=== PATIENT | female | born 1965 | race Hispanic/Latino ===

== ENCOUNTER 2016-07-18 08:00 | Emergency (ER) | payer MEDICARE, OTHER ==
[2016-07-18 08:01] VITALS: BMI 35.6
[2016-07-18 08:11] VITALS: TEMP 98.7; O2SAT 100
--- NOTE | 2016-07-18 08:23 | ED PDOC ---
Arrival/HPI - History of Present Illness Time/Duration: > week Symptom Onset: Gradual Symptom Course: Unchanged Quality: Other (pinching) Severity Level: 4 <Callie Vazquez - Last Filed: 07/18/16 09:47> <Marco Plaza - Last Filed: 07/18/16 12:37> - General Chief Complaint: Cough, Cold, Congestion Time Seen by Provider: 07/18/16 08:12 - History of Present Illness Narrative History of Present Illness (Text): 07/18/16 08:23 51 yo F w h/o COPD, active tobacco abuse and previous PNA presents with 3 week h /o sinus pain and green productive cough not improved with 7-days of augmentin ( finished 2 days ago) and 2-day h/o upper back pain. Back pain is described as intermittent "pinching lung pain" with no alleviating or exacerbating factors. Patient denies pleuritic pain, CP, fevers, abd pain, n/v/d, rashes. She admits to mild SOB, lethargy, myalgias, chills, and sweating. Patient states she still smokes 1ppd and has been doing so for >30years. (Callie Vazquez) Past Medical History - Provider Review Nursing Documentation Reviewed: Yes - Travel History Have you recently traveled outside [place] w/in the past 3 mons?: No - Infectious Disease Hx of Infectious Diseases: None - Reproductive Menopause: Yes - Pulmonary Hx Asthma: Yes Hx Chronic Obstructive Pulmonary Disease (COPD): Yes - Psychiatric Hx Substance Use: No - Surgical History Other/Comment: brain surgery for blood clot - Anesthesia Hx Anesthesia Reactions: No Hx Malignant Hyperthermia: No <Callie Vazquez - Last Filed: 07/18/16 09:47> Family/Social History - Physician Review Nursing Documentation Reviewed: Yes Family/Social History: No Known Family HX Smoking Status: Heavy Smoker > 10 Cigarettes Daily (x>30 years) Hx Alcohol Use: No Hx Substance Use: No <Callie Vazquez - Last Filed: 07/18/16 09:47> Allergies/Home Meds <Callie Vazquez - Last Filed: 07/18/16 09:47> <Marco Plaza - Last Filed: 07/18/16 12:37> Allergies/Adverse Reactions: Allergies mold Allergy (Verified 07/18/16 08:12) COUGH dust mites Allergy (Uncoded 07/18/16 08:12) COUGH Home Medications: Home Meds Medication Instructions Recorded Confirmed Clonazepam 0.5 mg PO TID 07/18/16 07/18/16 Fluticasone/Salmeterol 250/50 1 puff INH QID 07/18/16 07/18/16 [Advair Diskus 250/50] Montelukast [Singulair] 10 mg PO DAILY 07/18/16 07/18/16 Tiotropium [place] Inhaler 1 puff INH DAILY 07/18/16 07/18/16 [Spiriva Inhalation Handihaler Device] Review of Systems - Physician Review All systems were reviewed & negative as marked: Yes - Review of Systems Constitutional: Fatigue. absent: Fevers Eyes: absent: Vision Changes, Photophobia ENT: Rhinorrhea, Sinus Congestion. absent: Epistaxis Respiratory: SOB, Cough, Sputum (green x 3 weeks) Cardiovascular: absent: Chest Pain, Palpitations, Edema, Calf Pain Gastrointestinal: absent: Abdominal Pain, Constipation, Diarrhea, Nausea, Vomiting Genitourinary Female: absent: Dysuria, Hematuria Musculoskeletal: Back Pain (upper), Myalgias. absent: Neck Pain Skin: absent: Rash, Skin Lesions Neurological: absent: Headache, Dizziness Endocrine: Diaphoresis Hemo/Lymphatic: Normal Psychiatric: Anxiety. absent: Depression, Suicidal Ideation <Callie Vazquez - Last Filed: 07/18/16 09:47> Physical Exam Vital Signs Reviewed: Yes Temperature: Afebrile Blood Pressure: Normal Pulse: Regular Respiratory Rate: Normal Appearance: Positive for: Well-Appearing, Non-Toxic, Comfortable Pain Distress: None Mental Status: Positive for: Alert and Oriented X 3 - Systems Exam Head: Present: Atraumatic, Normocephalic Pupils: Present: PERRL. No: Sluggish Extroacular Muscles: Present: EOMI Conjunctiva: Present: Normal. No: Injected, Icteric Ears: Present: Normal Mouth: Present: Moist Mucous Membranes Pharnyx: Present: ERYTHEMA. No: EXUDATE Nose (Internal): Present: Normal Inspection, Boggy. No: Purulent Mucous Neck: Present: Normal Range of Motion. No: Meningeal Signs, JVD Respiratory/Chest: Present: Good Air Exchange, Wheezes (diffuse end-exp). No: Clear to Auscultation, Respiratory Distress, Accessory Muscle Use, Rales, Rhonchi, Tachypneic Cardiovascular: Present: Regular Rate and Rhythm, Normal S1, S2. No: Murmurs Abdomen: Present: Normal Bowel Sounds. No: Tenderness, Distention, Peritoneal Signs, Rebound, Guarding Back: Present: Normal Inspection, Other (mild muscle spasm upper thoracics). No : CVA Tenderness, Midline Tenderness, Paraspinal Tenderness Upper Extremity: Present: Normal Inspection. No: Cyanosis, Edema Lower Extremity: Present: Normal Inspection, NORMAL PULSES. No: Edema, CALF TENDERNESS Neurological: Present: GCS=15, CN II-XII Intact, Speech Normal Skin: Present: Warm, Dry, Normal Color Psychiatric: Present: Alert, Oriented x 3, Normal Insight, Normal Concentration <Callie Vazquez - Last Filed: 07/18/16 09:47> Vital Signs Temp Pulse Resp BP Pulse Ox 07/18/16 10:00 68 16 141/87 100 07/18/16 08:00 98.7 F 66 18 143/90 100 Medical Decision Making Re-evaluation Time: 09:23 Reassessment Condition: Re-examined, Improved - Lab Interpretations I have reviewed the lab results: Yes Interpretation: All labs normal - RAD Interpretation Communications Controller: ED Physician <Callie Vazquez - Last Filed: 07/18/16 09:47> <Marco Plaza - Last Filed: 07/18/16 12:37> ED Course and Treatment: 07/18/16 08:39 51 yo F w h/o COPD and active tobacco abuse presents with 3 week h/o productive cough and sinus pain with active end-expiratory wheezing on exam. CXR, labs, Duonebs, solumedrol. Extensively counseled patient regarding need for immediate smoking cessation for cardiovascular and overall health. 07/18/16 09:10 Patient re-examined. Still with some upper back pain. 15mg Toradol IVP x1. Receiving Duonebs. CXR shows possible RLL infiltrate. PO levaquin 500mg x1. 07/18/16 09:29 Patient CTA BL, wheezing significantly improved, no appreciable wheezing at this time, good air movement. States she feels better, denies SOB, SpO2 on room air 98-100%. Labs and x-ray findings discussed with patient and all questions answered. (Callie Vazquez) A 51 year old female with back pain and productive cough. In agreement with resident note, which includes further HPI details. Patient was seen and evaluated with resident, came up with plan and treatment together. On reevaluation, prior to discharge, lungs clear. no w/r/r. Patient asked for a remote sensing engineer and I referred her to Dr. Stack. (Marco Plaza) - Lab Interpretations Lab Results: 07/18/16 08:30 07/18/16 08:30 Lab Results 07/18/16 08:50: Urine HCG, Qual Negative 07/18/16 08:30: WBC 8.1, RBC 4.97, Hgb 14.3, Hct 42.4, MCV 85.3, MCH 28.8, MCHC 33.7, RDW 14.2, Plt Count 213, MPV 11.3 H, Gran % 60.7, Lymph % (Auto) 31.3, Morris % (Auto) 6.4 H, Eos % (Auto) 1.2 L, Baso % (Auto) 0.4, Gran # 4.94, Lymph # 2.6, Morris # 0.5, Eos # 0.1, Baso # 0.03, Sodium 139, Potassium 4.4, Chloride 104, Carbon Dioxide 27, Anion Gap 12, BUN 15, Creatinine 0.6, Est GFR ( Amer) > 60, Est GFR (Non-Af Amer) > 60, Random Glucose 98, Calcium 9.6, Total Bilirubin 0.7, AST 21, ALT 33, Alkaline Phosphatase 73, Total Protein 7.2, Albumin 4.0, Globulin 3.1, Albumin/Globulin Ratio 1.3 - RAD Interpretation Narrative RAD Interpretations (Text): 07/18/16 09:25 CXR - possible RLL infiltrate (Callie Vazquez) Radiology Orders: 07/18/16 08:29 CXR [CHEST TWO VIEWS (PA/LAT)] [RAD] Stat - Medication Orders Current Medication Orders: Discontinued Medications Albuterol/Ipratropium (Duoneb 3 Mg/0.5 Mg (3 Ml) Ud) 3 ml IH STAT STA Stop: 07/18/16 08:33 Last Admin: 07/18/16 08:58 Dose: 3 ML Ketorolac Tromethamine (Toradol) 15 mg IVP STAT STA Stop: 07/18/16 09:24 Last Admin: 07/18/16 09:42 Dose: 15 MG IVP Administration Document 07/18/16 09:42 HI (Rec: 07/18/16 09:42 HI [id number]) Charges for Administration # of IVP Administrations 1 Levofloxacin (Levaquin) 500 mg PO STAT STA Stop: 07/18/16 09:30 Last Admin: 07/18/16 09:42 Dose: 500 MG Methylprednisolone (Solu-Medrol) 125 mg IVP STAT STA Stop: 07/18/16 08:33 Last Admin: 07/18/16 08:58 Dose: 125 MG IVP Administration Document 07/18/16 08:58 HI (Rec: 07/18/16 08:58 HI [id number]) Charges for Administration # of IVP Administrations 1 <Callie Vazquez - Last Filed: 07/18/16 09:47> - PA / CERTIFIED CONTROL SYSTEMS TECHNICIAN / Resident Statement MD/ has reviewed & agrees with the documentation as recorded. MD/DO has examined the patient and agrees with the treatment plan. - Scribe Statement The provider has reviewed the documentation as recorded by the Scribe <Marco Plaza - Last Filed: 07/18/16 12:37> - Scribe Statement Belinda Manuel Provider Scribe Attestation: All medical record entries made by the Scribe were at my direction and personally dictated by me. I have reviewed the chart and agree that the record accurately reflects my personal performance of the history, physical exam, medical decision making, and the department course for this patient. I have also personally directed, reviewed, and agree with the discharge instructions and disposition. (Marco Plaza) Disposition/Present on Arrival - Present on Arrival Any Indicators Present on Arrival: No History of DVT/PE: No History of Uncontrolled Diabetes: No Urinary Catheter: No History of Decub. Ulcer: No History Surgical Site Infection Following: None - Disposition Have Diagnosis and Disposition been Completed?: Yes Disposition Time: 09:34 Patient Plan: Discharge <Callie Vazquez - Last Filed: 07/18/16 09:47> - Present on Arrival Any Indicators Present on Arrival: No - Disposition Have Diagnosis and Disposition been Completed?: Yes Disposition Time: 10:00 Patient Plan: Discharge <Marco Plaza - Last Filed: 07/18/16 12:37> - Disposition Diagnosis: Community acquired pneumonia, COPD exacerbation Disposition: HOME/ ROUTINE Condition: STABLE Discharge Instructions (ExitCare): Community Acquired Pneumonia (ED), How to Stop Smoking (ED) Print Language: DIVEHI Additional Instructions: Please followup with your primary care physician within 1-3 days. Please followup with pulmonology (Dr. Stack) within 1-3 days. Please take antibiotics (Levaquin) and steroids (prednisone) as directed. Please continue using your inhalers as prescribed. Prescriptions: Levofloxacin [Levaquin] 500 mg PO DAILY #5 tablet predniSONE [Prednisone] 40 mg PO DAILY #4 tab Referrals: Julia Villarreal MD [Family Provider] - Follow up with primary Checo Stack MD [Staff Provider] - Follow up with primary
[2016-07-18] MEDS ORDERED: Albuterol-Ipratrop 3 mg / 0.5 (3 ml) UD IH STA (08:32)
[2016-07-18 09:05] LABS: ADD MANUAL DIFF? NO
[2016-07-18 09:09] LABS: BASO # 0.03 K/mm3 (0.0-2.0); BASO % 0.4 % (0.0-3.0); EOS # 0.1 (0.0-0.7); EOS % 1.2 % (1.5-5.0); GRAN # 4.94 (1.4-6.5); GRAN % 60.7 % (50.0-68.0); HEMATOCRIT 42.4 % (36.0-48.0); LYMPH # 2.6 (1.2-3.4); LYMPH % 31.3 % (22.0-35.0); MEAN CELL VOLUME 85.3 fL (80.0-105.0); MEAN CORPUSCULAR HEMOGLOBIN 28.8 pg (25.0-35.0); MEAN CORPUSCULAR HGB CONC 33.7 g/dl (31.0-37.0); MEAN PLATELET VOLUME 11.3 fl (7.0-11.0); MONO # 0.5 (0.1-0.6); MONO % 6.4 % (1.0-6.0); PLATELET COUNT 213 10^3/uL (120.0-450.0); RED CELL DISTRIBUTION WIDTH 14.2 % (11.5-14.5); WHITE BLOOD COUNT 8.1 10^3/ul (4.5-11.0)
[2016-07-18 09:18] LABS: ALB/GLOB RATIO 1.3 (1.1-1.8); ALKALINE PHOSPHATASE 73 U/L (38-133); ALT/SGPT 33 U/L (7-56); AST/SGOT 21 U/L (15-39); BILIRUBIN,TOTAL 0.7 mg/dL (0.2-1.3); BLOOD UREA NITROGEN 15 mg/dL (7-21); CALCIUM 9.6 mg/dL (8.4-10.5); CARBON DIOXIDE 27 mmol/L (21-33); CHLORIDE 104 mmol/L (98-107); GFR AFRICAN-AMERICAN > 60; GLUCOSE,RANDOM 98 mg/dL (70-110); POTASSIUM 4.4 mmol/L (3.6-5.0); SODIUM 139 mmol/L (132-148); TOTAL PROTEIN 7.2 g/dL (5.8-8.3)
[2016-07-18] MEDS ORDERED: levoFLOXacin 500 MG TAB PO STA (09:29)
--- NOTE | 2016-07-18 09:44 | RAD ---
HISTORY: productive cough x 3 weeks COMPARISON: No prior. TECHNIQUE: Chest PA and lateral FINDINGS: LUNGS: No active pulmonary disease. PLEURA: No significant pleural effusion identified. No pneumothorax apparent. CARDIOVASCULAR: Normal. OSSEOUS STRUCTURES: Thoracic dextroscoliosis. VISUALIZED UPPER ABDOMEN: Normal. OTHER FINDINGS: None. IMPRESSION: No active disease.
[2016-07-18 10:02] VITALS: BP 141/87; PULSE 68; RESP 16
== END 2016-07-18 10:02 | disposition home or self-care (01) ==
LOC: MERGE 08:00 → ED 08:00
DX: J44.1 Chronic obstructive pulmonary disease with (acute) exacerbation (principal); J18.9 Pneumonia, unspecified organism; F17.210 Nicotine dependence, cigarettes, uncomplicated
CPT/HCPCS: 71020; 80053; 84703; 85025; 94640; 96374; 96375; 99283; J1885; J2930

== ENCOUNTER 2016-08-02 00:01 | Emergency (ER) | payer MEDICARE ==
[2016-08-02 00:07] VITALS: BP 146/99; PULSE 106; RESP 18; TEMP 98.8; BMI 34.9
[2016-08-02] MEDS ORDERED: Albuterol-Ipratrop 3 mg / 0.5 (3 ml) UD IH STA ×3 (00:17→00:46)
--- NOTE | 2016-08-02 00:46 | ED PDOC ---
Arrival/HPI - General Chief Complaint: Shortness Of Breath Time Seen by Provider: 08/02/16 00:16 Historian: Patient - History of Present Illness Narrative History of Present Illness (Text): 08/02/16 00:48 51yo female with PMHx of COPD under [employer] custody BIBA for complaint of SOB all day. States she usually use multiple medications for her COPD, but she could only use her Spriva today. She smokes cigarette. States she was given Levaquin here last week for PNA. she denies fever, chills, chest pain, any other complaint. Past Medical History - Provider Review Nursing Documentation Reviewed: Yes - Infectious Disease Hx of Infectious Diseases: None - Pulmonary Hx Asthma: Yes Hx Chronic Obstructive Pulmonary Disease (COPD): Yes - Psychiatric Hx Substance Use: No - Surgical History Other/Comment: brain surgery for blood clot - Anesthesia Hx Anesthesia Reactions: No Hx Malignant Hyperthermia: No Family/Social History - Physician Review Nursing Documentation Reviewed: Yes Family/Social History: Unknown Family HX Smoking Status: Heavy Smoker > 10 Cigarettes Daily Hx Alcohol Use: No Hx Substance Use: No Allergies/Home Meds Allergies/Adverse Reactions: Allergies mold Allergy (Verified 07/18/16 08:12) COUGH dust mites Allergy (Uncoded 07/18/16 08:12) COUGH Home Medications: Home Meds Medication Instructions Recorded Confirmed Clonazepam 0.5 mg PO TID 07/18/16 07/18/16 Fluticasone/Salmeterol 250/50 1 puff INH QID 07/18/16 07/18/16 [Advair Diskus 250/50] Montelukast [Singulair] 10 mg PO DAILY 07/18/16 07/18/16 Tiotropium [place] Inhaler 1 puff INH DAILY 07/18/16 07/18/16 [Spiriva Inhalation Handihaler Device] Review of Systems - Physician Review All systems were reviewed & negative as marked: Yes - Review of Systems Constitutional: Normal Eyes: Normal ENT: Normal Respiratory: SOB. absent: Cough, Sputum, Wheezing Cardiovascular: Normal Gastrointestinal: Normal Genitourinary Female: Normal Musculoskeletal: Normal Skin: Normal Neurological: Normal Endocrine: Normal Hemo/Lymphatic: Normal Psychiatric: Normal Physical Exam Vital Signs Reviewed: Yes Vital Signs Temp Pulse Resp BP Pulse Ox 08/02/16 01:56 18 98 08/02/16 00:20 18 08/02/16 00:07 98.8 F 106 H 18 146/99 H 94 L Temperature: Afebrile Blood Pressure: Normal Pulse: Regular Respiratory Rate: Normal Appearance: Positive for: Well-Appearing, Non-Toxic, Comfortable Pain Distress: None Mental Status: Positive for: Alert and Oriented X 3 - Systems Exam Head: Present: Atraumatic, Normocephalic Pupils: Present: PERRL Extroacular Muscles: Present: EOMI Conjunctiva: Present: Normal Mouth: Present: Moist Mucous Membranes Neck: Present: Normal Range of Motion Respiratory/Chest: Present: Good Air Exchange, Wheezes (Diffuse expiratory wheeze), Rhonchi. No: Respiratory Distress, Accessory Muscle Use, Decreased Breath Sounds, Rales, Retracting Cardiovascular: Present: Regular Rate and Rhythm, Normal S1, S2. No: Murmurs Abdomen: Present: Normal Bowel Sounds. No: Tenderness, Distention, Peritoneal Signs Back: Present: Normal Inspection Upper Extremity: Present: Normal Inspection. No: Cyanosis, Edema Lower Extremity: Present: Normal Inspection. No: Edema Neurological: Present: GCS=15, CN II-XII Intact, Speech Normal Skin: Present: Warm, Dry, Normal Color. No: Rashes Psychiatric: Present: Alert, Oriented x 3, Normal Insight, Normal Concentration Medical Decision Making ED Course and Treatment: 08/02/16 01:58 On re evaluation pt's lung is CTA b/l. she states she feels much better. she was DC with a rx of albuterol and prednisone. counselled on smoking cessation. Referred to her PMD. TRT ED for any new or worsening symptoms. - Medication Orders Current Medication Orders: Discontinued Medications Albuterol/Ipratropium (Duoneb 3 Mg/0.5 Mg (3 Ml) Ud) 3 ml IH STAT STA Stop: 08/02/16 00:18 Last Admin: 08/02/16 00:33 Dose: 3 ml Albuterol/Ipratropium (Duoneb 3 Mg/0.5 Mg (3 Ml) Ud) 3 ml IH STAT STA Stop: 08/02/16 00:19 Last Admin: 08/02/16 00:47 Dose: 3 ml Albuterol/Ipratropium (Duoneb 3 Mg/0.5 Mg (3 Ml) Ud) 3 ml IH STAT STA Stop: 08/02/16 00:47 Last Admin: 08/02/16 01:38 Dose: 3 ml Methylprednisolone (Solu-Medrol) 125 mg IVP STAT STA Stop: 08/02/16 00:27 Last Admin: 08/02/16 00:47 Dose: 125 mg Disposition/Present on Arrival - Present on Arrival Any Indicators Present on Arrival: No History of DVT/PE: No History of Uncontrolled Diabetes: No Urinary Catheter: No History of Decub. Ulcer: No History Surgical Site Infection Following: None - Disposition Have Diagnosis and Disposition been Completed?: Yes Diagnosis: COPD exacerbation Disposition: RELEASED IN POLICE CUSTODY Disposition Time: :45 Patient Plan: Discharge Condition: STABLE Discharge Instructions (ExitCare): COPD (Chronic Obstructive Pulmonary Disease ) (ED) Additional Instructions: Follow up with your doctor Return to ED for any new or worsening symptoms Patient is medically cleared for incarceration Prescriptions: Albuterol HFA [Ventolin HFA 90 mcg/actuation (8 g)] 2 puff IH [id number] #1 puff Prednisone 50 mg PO DAILY #4 tab Referrals: [facility] [place] [Outside] - Follow up with primary
[2016-08-02 01:57] VITALS: O2SAT 98
--- NOTE | 2016-08-02 13:32 | CARD ---
APPROVED REPORT EKG Measurement Heart [id number] <Conclusion> Normal sinus rhythm Moderate voltage criteria for LVH, may be normal variant Borderline ECG
== END 2016-08-02 01:57 ==
LOC: MERGE 00:01 → ED 00:01
DX: J44.1 Chronic obstructive pulmonary disease with (acute) exacerbation (principal); F17.210 Nicotine dependence, cigarettes, uncomplicated
CPT/HCPCS: 93005; 96374; 99284; J2930

== ENCOUNTER 2016-08-02 07:47 | Emergency (ER) | payer MEDICARE ==
[2016-08-02 07:49] VITALS: BMI 34.9
[2016-08-02 08:14] VITALS: BP 158/84; PULSE 80; RESP 16; TEMP 98.9; O2SAT 97
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
== END 2016-08-02 09:07 | disposition home or self-care (01) ==
LOC: ED 07:47 → MERGE 07:47 → ED 09:07
DX: S10.91XA Abrasion of unspecified part of neck, initial encounter (principal); S30.811A Abrasion of abdominal wall, initial encounter; S70.211A Abrasion, right hip, initial encounter; T14.8 Other injury of unspecified body region; Y04.0XXA Assault by unarmed brawl or fight, initial encounter

== ENCOUNTER 2016-08-25 10:21 | Emergency (ER) | payer MEDICARE ==
[2016-08-25 10:21] VITALS: BMI 34.9
[2016-08-25 10:27] VITALS: RESP 17; TEMP 98.1
[2016-08-25] MEDS ORDERED: Albuterol-Ipratrop 3 mg / 0.5 (3 ml) UD IH STA (10:45)
[2016-08-25] MEDS ORDERED: Promethazine/Cod 6.25mg-10mg/5ml Syr UD PO STA (10:47)
--- NOTE | 2016-08-25 10:48 | ED PDOC ---
Arrival/HPI - General Chief Complaint: Cough, Cold, Congestion Time Seen by Provider: 08/25/16 10:30 Historian: Patient - History of Present Illness Narrative History of Present Illness (Text): 08/25/16 10:45 This 51 yo female presents to this ED c/o cough, and wheezing x 10 days. Patient also noted back pain. Denies hemoptysis, abdominal pain, cp, n/v, / GI incontinence, saddle anesthesias, urinary symptoms, saddle anesthesias, vaginals discharge, or abnormal gait. Time/Duration: > week Context: Home Past Medical History - Provider Review Nursing Documentation Reviewed: Yes - Infectious Disease Hx of Infectious Diseases: None - Pulmonary Hx Asthma: Yes Hx Chronic Obstructive Pulmonary Disease (COPD): Yes - Psychiatric Hx Substance Use: No - Surgical History Other/Comment: brain surgery for blood clot - Anesthesia Hx Anesthesia Reactions: No Hx Malignant Hyperthermia: No Family/Social History - Physician Review Nursing Documentation Reviewed: Yes Family/Social History: No Known Family HX Smoking Status: Heavy Smoker > 10 Cigarettes Daily Hx Alcohol Use: No Hx Substance Use: No Allergies/Home Meds Allergies/Adverse Reactions: Allergies mold Allergy (Verified 08/25/16 10:23) COUGH dust mites Allergy (Uncoded 08/25/16 10:23) COUGH Home Medications: Home Meds Medication Instructions Recorded Confirmed Clonazepam 0.5 mg PO TID 07/18/16 08/25/16 Tiotropium [place] Inhaler 1 puff INH DAILY 07/18/16 08/25/16 [Spiriva Inhalation Handihaler Device] Glycopyrrolate/Formoterol Fum 10.7 gm IH DAILY 08/25/16 08/25/16 [Bevespi Aerosphere Inhaler] Varenicline Tartrate [Chantix] 0.5 mg PO DAILY 08/25/16 08/25/16 Review of Systems - Review of Systems Constitutional: Normal. absent: Fatigue, Weight Change, Fevers, Night Sweats Eyes: Normal ENT: Normal Respiratory: Cough, Sputum, Wheezing. absent: SOB Cardiovascular: Normal. absent: Chest Pain, Palpitations, Edema, Calf Pain, Orthopnea, Syncope Gastrointestinal: Normal. absent: Abdominal Pain, Nausea, Vomiting Genitourinary Female: Normal Musculoskeletal: Normal Skin: Normal Neurological: Normal. absent: Headache, Dizziness, Focal Weakness, Gait Changes , Speech Changes, Facial Droop, Disequilibrium, Seizure Endocrine: Normal Hemo/Lymphatic: Normal Psychiatric: Normal Physical Exam Vital Signs Temp Pulse Resp BP Pulse Ox 08/25/16 12:12 68 17 121/70 99 08/25/16 10:21 98.1 F 64 17 120/66 100 Temperature: Afebrile Blood Pressure: Normal Pulse: Regular Respiratory Rate: Normal Appearance: Positive for: Well-Appearing, Non-Toxic, Comfortable Pain Distress: None Mental Status: Positive for: Alert and Oriented X 3 - Systems Exam Head: Present: Atraumatic, Normocephalic Pupils: Present: PERRL Extroacular Muscles: Present: EOMI Conjunctiva: Present: Normal Mouth: Present: Moist Mucous Membranes Pharnyx: Present: Normal. No: ERYTHEMA, EXUDATE, TONSILS ENLARGED Nose (External): Present: Atraumatic Nose (Internal): Present: Normal Inspection Neck: Present: Normal Range of Motion. No: Meningeal Signs Respiratory/Chest: Present: Good Air Exchange, Wheezes. No: Respiratory Distress, Accessory Muscle Use, Decreased Breath Sounds, Rales, Retracting, Rhonchi, Tachypneic Cardiovascular: Present: Regular Rate and Rhythm, Normal S1, S2. No: Murmurs Abdomen: Present: Normal Bowel Sounds. No: Tenderness, Distention, Peritoneal Signs Back: Present: Normal Inspection. No: CVA Tenderness Upper Extremity: Present: Normal Inspection. No: Cyanosis, Edema Lower Extremity: Present: Normal Inspection. No: Edema Neurological: Present: GCS=15, CN II-XII Intact, Speech Normal Skin: Present: Warm, Dry, Normal Color. No: Rashes Psychiatric: Present: Alert, Oriented x 3, Normal Insight, Normal Concentration Medical Decision Making ED Course and Treatment: 08/25/16 12:46 Re-evaluation. Patient feels better. Discussed results and plan with patient who expresses understanding. All questions answered and there is agreement with the plan to discharge home with instructions. Patient stable for discharge. Return if symptoms persist or worsen. Patient requested Prednisone. She says she has used it in the past for wheezing. She understands risk of AVN, glaucoma, DM, osteoporosis, just to name a few complication. Re-evaluation Time: 12:46 Reassessment Condition: Re-examined, Improved - RAD Interpretation Narrative RAD Interpretations (Text): CXR: NAD Radiology Orders: 08/25/16 12:14 CHEST TWO VIEWS (PA/LAT) [RAD] Stat - Medication Orders Current Medication Orders: Discontinued Medications Albuterol/Ipratropium (Duoneb 3 Mg/0.5 Mg (3 Ml) Ud) 3 ml IH STAT STA Stop: 08/25/16 10:46 Last Admin: 08/25/16 11:00 Dose: 3 ml Prednisone (Prednisone Tab) 60 mg PO STAT ONE Stop: 08/25/16 10:47 Last Admin: 08/25/16 11:00 Dose: 60 mg Promethazine HCl/Codeine (Phenergan/Codeine Oral Syrup) 5 ml PO STAT STA Stop: 08/25/16 10:48 Last Admin: 08/25/16 11:00 Dose: 5 ml Disposition/Present on Arrival - Present on Arrival Any Indicators Present on Arrival: No History of DVT/PE: No History of Uncontrolled Diabetes: No Urinary Catheter: No History of Decub. Ulcer: No History Surgical Site Infection Following: None - Disposition Have Diagnosis and Disposition been Completed?: Yes Diagnosis: Upper respiratory infection, Upper back pain Disposition: HOME/ ROUTINE Disposition Time: 12:47 Patient Plan: Discharge Condition: GOOD Discharge Instructions (ExitCare): Upper Respiratory Infection (ED) Additional Instructions: Call private doctor for follow up visit in 1-2 days. Take medication as instructed with food. Avoid sun exposure while taking antibiotic. Avoid driving or operating machinery while using cough medication. Return to emergency if symptoms worsen. Prescriptions: Doxycycline Monohydrate 100 mg PO BID #14 tablet Prednisone [Deltasone] 60 mg PO DAILY #12 tablet Promethazine/Codeine [Codeine/Promethazine 10 MG/5 Ml-6.25 MG/5 Ml] 5 ml PO Q4 PRN #120 ml PRN Reason: Cough Referrals: [employer] Misael Req, [Non-Staff] - Follow up with primary Julia Villarreal MD [Medical Doctor] - Follow up with primary Forms: WORK NOTE
[2016-08-25 12:26] VITALS: BP 121/70; PULSE 68; O2SAT 99
--- NOTE | 2016-08-25 12:36 | RAD ---
HISTORY: cough COMPARISON: 07/18/2016 TECHNIQUE: Chest PA and lateral FINDINGS: LUNGS: No active pulmonary disease. PLEURA: No significant pleural effusion identified. No pneumothorax apparent. CARDIOVASCULAR: Normal. OSSEOUS STRUCTURES: Severe scoliosis of the upper thoracic spine VISUALIZED UPPER ABDOMEN: Normal. OTHER FINDINGS: None. IMPRESSION: No active disease.
== END 2016-08-25 13:06 | disposition home or self-care (01) ==
LOC: ED 10:21 → MERGE 10:21 → ED 13:06
DX: J06.9 Acute upper respiratory infection, unspecified (principal); M54.9 Dorsalgia, unspecified; F17.210 Nicotine dependence, cigarettes, uncomplicated

== ENCOUNTER 2016-12-09 19:15 | Emergency (ER) | payer MEDICARE ==
[2016-12-09 19:16] VITALS: BMI 34.9
[2016-12-09] MEDS ORDERED: Sodium Chloride 0.9% 1,000 ML IV STA (19:46)
--- NOTE | 2016-12-09 19:49 | ED PDOC ---
Arrival/HPI - General Time Seen by Provider: 12/09/16 19:35 Historian: Patient - History of Present Illness Narrative History of Present Illness (Text): 12/09/16 19:46 Pt. to emergency depaPast medical history COPD,"brain clot",cholecystectomy to emergency depawith c/e episodes of vomiting and diarrhea for past few days.Occassional abdominal cramps.No fever or chills.No chest or back pain.Appetite is fair.No hx of any recent travel. Past Medical History - Provider Review Nursing Documentation Reviewed: Yes - Travel History Have you recently traveled outside [place] w/in the past 3 mons?: No - Infectious Disease Hx of Infectious Diseases: None - Pulmonary Hx Asthma: Yes Hx Chronic Obstructive Pulmonary Disease (COPD): Yes - Psychiatric Hx Substance Use: No - Surgical History Other/Comment: brain surgery for blood clot - Anesthesia Hx Anesthesia Reactions: No Hx Malignant Hyperthermia: No Family/Social History - Physician Review Nursing Documentation Reviewed: Yes Family/Social History: No Known Family HX Smoking Status: Heavy Smoker > 10 Cigarettes Daily Hx Alcohol Use: No Hx Substance Use: No Allergies/Home Meds Allergies/Adverse Reactions: Allergies mold Allergy (Verified 12/09/16 20:09) COUGH dust mites Allergy (Uncoded 12/09/16 20:09) COUGH Home Medications: Home Meds Medication Instructions Recorded Confirmed Clonazepam 0.5 mg PO TID 07/18/16 12/09/16 Tiotropium [place] Inhaler 1 puff INH DAILY 07/18/16 12/09/16 [Spiriva Inhalation Handihaler Device] Review of Systems - Review of Systems Constitutional: Normal Eyes: Normal ENT: Normal Respiratory: Normal Cardiovascular: Normal Gastrointestinal: Diarrhea, Vomiting Genitourinary Female: Normal Musculoskeletal: Normal Skin: Normal Neurological: Normal Endocrine: Normal Hemo/Lymphatic: Normal Psychiatric: Normal Physical Exam Vital Signs Temp Pulse Resp BP Pulse Ox 12/09/16 21:42 98.5 F 82 20 151/89 H 97 Temperature: Afebrile Blood Pressure: Normal Pulse: Regular Respiratory Rate: Normal Appearance: Positive for: Well-Appearing, Non-Toxic, Comfortable Pain Distress: None Mental Status: Positive for: Alert and Oriented X 3 - Systems Exam Head: Present: Atraumatic, Normocephalic Pupils: Present: PERRL Extroacular Muscles: Present: EOMI Conjunctiva: Present: Normal Mouth: Present: Moist Mucous Membranes Pharnyx: Present: Normal Neck: Present: Normal Range of Motion Respiratory/Chest: Present: Clear to Auscultation, Good Air Exchange. No: Respiratory Distress, Accessory Muscle Use Cardiovascular: Present: Regular Rate and Rhythm, Normal S1, S2. No: Murmurs Abdomen: Present: Normal Bowel Sounds. No: Tenderness, Distention, Peritoneal Signs Back: Present: Normal Inspection Upper Extremity: Present: Normal Inspection. No: Cyanosis, Edema Lower Extremity: Present: Normal Inspection. No: Edema Neurological: Present: GCS=15, CN II-XII Intact, Speech Normal, Motor Func Grossly Intact, Normal Sensory Function Skin: Present: Warm, Dry, Normal Color. No: Rashes Psychiatric: Present: Alert, Oriented x 3, Normal Insight, Normal Concentration Medical Decision Making - Lab Interpretations Lab Results: 12/09/16 20:24 12/09/16 20:24 Lab Results 12/09/16 20:24: WBC 7.4, RBC 5.10, Hgb 15.2, Hct 44.1, MCV 86.5, MCH 29.8, MCHC 34.5, RDW 14.1, Plt Count 212, MPV 10.0 12/09/16 20:24: Sodium 139, Potassium 4.2, Chloride 106, Carbon Dioxide 20 L, Anion Gap 17, BUN 22 H, Creatinine 0.7, Est GFR ( Amer) > 60, Est GFR ( Non-Af Amer) > 60, Random Glucose 97, Calcium 8.8, Total Bilirubin 0.3, AST 37 H , ALT 37, Alkaline Phosphatase 78, Total Protein 6.8, Albumin 4.1, Globulin 2.7 , Albumin/Globulin Ratio 1.5, Lipase 106 - Medication Orders Current Medication Orders: Discontinued Medications Famotidine (Pepcid) 20 mg IVP STAT STA Stop: 12/09/16 19:47 Last Admin: 12/09/16 21:35 Dose: 20 mg Sodium Chloride (Sodium Chloride 0.9%) 1,000 mls @ 999 mls/hr IV .Q1H1M STA Stop: 12/09/16 20:46 Last Admin: 12/09/16 21:00 Dose: 999 mls/hr Ketorolac Tromethamine (Toradol) 30 mg IVP ONCE ONE Stop: 12/09/16 19:47 Last Admin: 12/09/16 21:35 Dose: 30 mg Ondansetron HCl (Zofran Inj) 4 mg IVP ONCE ONE Stop: 12/09/16 19:47 Last Admin: 12/09/16 21:36 Dose: 4 mg Disposition/Present on Arrival - Present on Arrival Any Indicators Present on Arrival: No History of DVT/PE: No History of Uncontrolled Diabetes: No Urinary Catheter: No History Surgical Site Infection Following: None - Disposition Have Diagnosis and Disposition been Completed?: Yes Diagnosis: Gastroenteritis Disposition: HOME/ ROUTINE Disposition Time: 22:08 Patient Plan: Discharge Condition: GOOD Discharge Instructions (ExitCare): Gastroenteritis (ED), Acute Nausea and Vomiting (ED) Additional Instructions: Drink frequent small amounts of liquids at atime/advance diet slowly as tolerated/bland diet/medication as prescribed/follow up with your doctor this week Prescriptions: Ondansetron [Zofran Odt] 4 mg PO Q6 PRN #12 odt PRN Reason: Nausea/Vomiting [facility] - Follow up with primary
[2016-12-09 20:36] LABS: HEMATOCRIT 44.1 % (36.0-48.0); MEAN CELL VOLUME 86.5 fl (80.0-105.0); MEAN CORPUSCULAR HEMOGLOBIN 29.8 pg (25.0-35.0); MEAN CORPUSCULAR HGB CONC 34.5 g/dl (31.0-37.0); RED CELL DISTRIBUTION WIDTH 14.1 % (11.5-14.5); WHITE BLOOD COUNT 7.4 10^3/ul (4.5-11.0)
[2016-12-09 20:45] LABS: ALB/GLOB RATIO 1.5 (1.1-1.8); ALKALINE PHOSPHATASE 78 U/L (38-126); ALT/SGPT 37 U/L (7-56); AST/SGOT 37 U/L (14-36); BILIRUBIN,TOTAL 0.3 mg/dL (0.2-1.3); BLOOD UREA NITROGEN 22 mg/dL (7-21); CALCIUM 8.8 mg/dL (8.4-10.5); CARBON DIOXIDE 20 mmol/L (21-33); CHLORIDE 106 mmol/L (98-107); GFR AFRICAN-AMERICAN > 60; GLUCOSE,RANDOM 97 mg/dL (70-110); LIPASE 106 U/L (23-300); POTASSIUM 4.2 mmol/L (3.6-5.0); SODIUM 139 mmol/L (132-148); TOTAL PROTEIN 6.8 g/dL (5.8-8.3)
[2016-12-09 21:43] VITALS: BP 151/89; TEMP 98.5
[2016-12-09 22:22] VITALS: PULSE 80; RESP 16; O2SAT 99
== END 2016-12-09 22:22 | disposition home or self-care (01) ==
LOC: ED 19:15
DX: K52.9 Noninfective gastroenteritis and colitis, unspecified (principal)
CPT/HCPCS: 80053; 83690; 85027; 96374; 96375; 99284; J1885; J2405; J7040

== ENCOUNTER 2017-01-30 06:59 | Emergency (ER) | payer MEDICARE ==
[2017-01-30 07:00] VITALS: BMI 34.9
[2017-01-30 07:16] VITALS: BP 138/84; PULSE 83; RESP 16; TEMP 98; O2SAT 100
--- NOTE | 2017-01-30 07:39 | ED PDOC ---
Arrival/HPI - General Chief Complaint: Lower Extremity Problem/Injury Time Seen by Provider: 01/30/17 07:09 Historian: Patient - History of Present Illness Narrative History of Present Illness (Text): 01/30/17 07:34 A 51 year old female whose past medical history includes, COPD and cholecystectomy, presents to the emergency department with a complaint of 3 day duration left ankle swelling. The patient states that she has also noticed her right ankle becoming more swollen. The patient denies fevers, chills, headache, dizziness, chest pain, shortness of breath, dyspnea on exertion, cough, abdominal pain, nausea, vomiting, diarrhea, back pain, neck pain, urinary/bowel changes, injury/ trauma or any other complaint. Time/Duration: Other (3 Days) Symptom Onset: Sudden Symptom Course: Unchanged Activities at Onset: Rest, Light Past Medical History - Provider Review Nursing Documentation Reviewed: Yes - Infectious Disease Hx of Infectious Diseases: None - Cardiac Hx Cardiac Disorders: No - Pulmonary Hx Respiratory Disorders: Yes Hx Asthma: Yes Hx Chronic Obstructive Pulmonary Disease (COPD): Yes - Neurological Hx Neurological Disorder: No - HEENT Hx HEENT Disorder: No - Renal Hx Renal Disorder: No - Endocrine/Metabolic Hx Endocrine Disorders: No - Hematological/Oncological Hx Blood Disorders: No - Integumentary Hx Dermatological Disorder: No - Musculoskeletal/Rheumatological Hx Musculoskeletal Disorders: No - Gastrointestinal Hx Gastrointestinal Disorders: No - Genitourinary/Gynecological Hx Genitourinary Disorders: No - Psychiatric Hx Psychophysiologic Disorder: No Hx Substance Use: No - Surgical History Hx Cholecystectomy: Yes - Anesthesia Hx Anesthesia Reactions: No Hx Malignant Hyperthermia: No Family/Social History - Physician Review Nursing Documentation Reviewed: Yes Family/Social History: No Known Family HX Smoking Status: Heavy Smoker > 10 Cigarettes Daily Hx Alcohol Use: No Hx Substance Use: No Allergies/Home Meds Allergies/Adverse Reactions: Allergies mold Allergy (Verified 01/30/17 07:15) COUGH dust mites Allergy (Uncoded 01/30/17 07:15) COUGH Home Medications: Home Meds Medication Instructions Recorded Confirmed Clonazepam 1 mg PO TID 07/18/16 01/30/[address] [place] Inhaler 1 puff INH DAILY 07/18/16 01/30/17 [Spiriva Inhalation Handihaler Device] Albuterol 0.5% [Albuterol 0.5% 1 inh INH PRN PRN 01/30/17 01/30/17 Inhal Kaya (2.5 mg/0.5 ml) UD] Fluticasone/Salmeterol 500/50 1 inh INH BID 01/30/17 01/30/17 [Advair Diskus 500/50] Review of Systems - Physician Review All systems were reviewed & negative as marked: Yes - Review of Systems Constitutional: absent: Fevers, Night Sweats ENT: absent: Sore Throat Respiratory: absent: SOB, Cough Cardiovascular: absent: Chest Pain, MOSS Gastrointestinal: absent: Abdominal Pain, Stool Changes, Diarrhea, Nausea, Vomiting Genitourinary Female: absent: Urine Output Changes Musculoskeletal: Other (Left and right ankle swelling.). absent: Back Pain, Neck Pain Neurological: absent: Headache, Dizziness Physical Exam Vital Signs Reviewed: Yes Vital Signs Temp Pulse Resp BP Pulse Ox 01/30/17 07:15 98 F 83 16 138/84 100 Temperature: Afebrile Blood Pressure: Normal Pulse: Regular Respiratory Rate: Normal Appearance: Positive for: Well-Appearing, Non-Toxic, Comfortable Pain Distress: None Mental Status: Positive for: Alert and Oriented X 3 - Systems Exam Head: Present: Atraumatic, Normocephalic Pupils: Present: PERRL Extroacular Muscles: Present: EOMI Conjunctiva: Present: Normal Mouth: Present: Moist Mucous Membranes Neck: Present: Normal Range of Motion Respiratory/Chest: Present: Clear to Auscultation, Good Air Exchange. No: Respiratory Distress, Accessory Muscle Use Cardiovascular: Present: Regular Rate and Rhythm, Normal S1, S2. No: Murmurs Abdomen: Present: Normal Bowel Sounds. No: Tenderness, Distention, Peritoneal Signs Back: Present: Normal Inspection Upper Extremity: Present: Normal Inspection. No: Cyanosis, Edema Lower Extremity: Present: Swelling (minimal bilateral ankle swelling noted) Neurological: Present: GCS=15, CN II-XII Intact, Speech Normal Skin: Present: Warm, Dry, Normal Color. No: Rashes Psychiatric: Present: Alert, Oriented x 3, Normal Insight, Normal Concentration Medical Decision Making ED Course and Treatment: 01/30/17 07:41 Impression: A 51 year old female presents to the emergency department with a complaint of 3 day duration left and right ankle swelling. Plan: -- Lower Extremity Vein Ultrasound -- Labs -- Urinalysis -- Reassess and disposition Prior Visits: Notes and results from previous visits were reviewed. Patient was last seen in the emergency department on 12/09/2016. The patient was seen in the emergency department for episodes of vomiting and diarrhea with occasional abdominal cramping. The patient was discharged home on Zofran and advised to follow up with her PMD. Progress Notes: - Lab Interpretations Lab Results: 01/30/17 07:58 01/30/17 07:58 Lab Results 01/30/17 07:58: Urine Color Yellow, Urine Appearance Sl cloudy, Urine pH 6.0, Ur Specific [place] 1.020, Urine Protein Negative, Urine Glucose (UA) Negative, Urine Ketones Negative, Urine Blood Large H, Urine Nitrate Negative, Urine Bilirubin Negative, Urine Urobilinogen 0.2, Ur Leukocyte Esterase Negative, Urine RBC 1 - 3, Urine WBC 0 - 2, Ur Epithelial Cells 6 - 8, Urine Bacteria Many , Urine HCG, Qual Negative 01/30/17 07:58: Sodium 141, Potassium 4.4, Chloride 105, Carbon Dioxide 27, Anion Gap 13, BUN 19, Creatinine 0.9, Est GFR ( Amer) > 60, Est GFR (Non- Af Amer) > 60, Random Glucose 123 H, Calcium 9.5, Total Bilirubin 0.7, AST 51 H D, ALT 53, Alkaline Phosphatase 54, Total Protein 7.1, Albumin 4.2, Globulin 3.0 , Albumin/Globulin Ratio 1.4 01/30/17 07:58: PT 9.7, INR 0.88 L, APTT 24.3 L 01/30/17 07:58: WBC 8.3, RBC 4.55, Hgb 13.4, Hct 41.3, MCV 90.8 D, MCH 29.5, MCHC 32.4, RDW 14.7 H, Plt Count 205, MPV 11.3 H, Gran % 60.2, Lymph % (Auto) 31.4, [place] % (Auto) 7.2 H, Eos % (Auto) 0.8 L, Baso % (Auto) 0.4, Gran # 4.99, Lymph # 2.6, [place] # 0.6, Eos # 0.1, Baso # 0.03 I have reviewed the lab results: Yes - RAD Interpretation Radiology Orders: 01/30/17 07:24 DUPLEX LOWER EXTRM VEIN BILAT [US] Stat - Medication Orders Current Medication Orders: Discontinued Medications Ketorolac Tromethamine (Toradol) 30 mg IVP STAT STA Stop: 01/30/17 08:01 Last Admin: 01/30/17 08:25 Dose: 30 mg MAR Pain Assessment Document 01/30/17 08:25 AB (Rec: 01/30/17 08:26 AB [id number]) Pain Reassessment Is this a pain reassessment? Yes Sleep Is patient sleeping during reassessment? No Presence of Pain Presence of Pain Yes Pain Scale Used Pain Scale Used Numeric Location Left, Right or Bilateral Left Upper or Lower Lower Pain Location Body Site Ankle Description Description Constant Intensity of Pain at present 5 Pain Behavior Grasping Site Aggravating Factors ADL's Changing Position Alleviating Factors/Management Medication Techniques Ice Alleviating Factors Ice IVP Administration Document 01/30/17 08:25 AB (Rec: 01/30/17 08:26 AB [id number]) Charges for Administration # of IVP Administrations 1 - Scribe Statement The provider has reviewed the documentation as recorded by the Alisaibporsha Curtis Provider Scribe Attestation: All medical record entries made by the Scribe were at my direction and personally dictated by me. I have reviewed the chart and agree that the record accurately reflects my personal performance of the history, physical exam, medical decision making, and the department course for this patient. I have also personally directed, reviewed, and agree with the discharge instructions and disposition. Disposition/Present on Arrival - Present on Arrival Any Indicators Present on Arrival: No History of DVT/PE: No History of Uncontrolled Diabetes: No Urinary Catheter: No History of Decub. Ulcer: No History Surgical Site Infection Following: None - Disposition Have Diagnosis and Disposition been Completed?: Yes Diagnosis: Leg pain Disposition: HOME/ ROUTINE Disposition Time: 09:00 Condition: STABLE Discharge Instructions (ExitCare): Leg Edema (ED), Leg Pain (ED) Additional Instructions: please follow up with your doctor. return to er with worsening symptoms or concerns. your urine showed a small amount of blood. you should discuss this with your doctor and may require further testing. Prescriptions: Naproxen 500 mg PO BID PRN #14 tablet.dr ROGERS Reason: Pain, Mild (1-3) Referrals: [facility] [Outside] - Follow up with primary [facility] [place]] - Follow up with primary Elieser Vaz[facility]. [employer] [Outside] - Follow up with primary Forms: [employer] (Finnish)
[2017-01-30 08:10] LABS: BASO # 0.03 K/mm3 (0.0-2.0); BASO % 0.4 % (0.0-3.0); EOS # 0.1 (0.0-0.7); EOS % 0.8 % (1.5-5.0); GRAN # 4.99 (1.4-6.5); GRAN % 60.2 % (50.0-68.0); HEMATOCRIT 41.3 % (36.0-48.0); LYMPH # 2.6 (1.2-3.4); LYMPH % 31.4 % (22.0-35.0); MEAN CELL VOLUME 90.8 fl (80.0-105.0); MEAN CORPUSCULAR HEMOGLOBIN 29.5 pg (25.0-35.0); MEAN CORPUSCULAR HGB CONC 32.4 g/dl (31.0-37.0); MEAN PLATELET VOLUME 11.3 fl (7.0-11.0); MONO # 0.6 (0.1-0.6); MONO % 7.2 % (1.0-6.0); RED CELL DISTRIBUTION WIDTH 14.7 % (11.5-14.5); WHITE BLOOD COUNT 8.3 10^3/ul (4.5-11.0)
[2017-01-30 08:11] LABS: URINE BILIRUBIN NEGATIVE (NEGATIVE); URINE BLOOD LARGE (NEGATIVE); URINE GLUCOSE (UA) NEGATIVE (NEGATIVE); URINE KETONE NEGATIVE (NEGATIVE); URINE LEUKOCYTE ESTERASE NEGATIVE Leu/uL (NEGATIVE); URINE PROTEIN NEGATIVE mg/dL (<30 mg/dL); URINE UROBILINOGEN 0.2 E.U./dL (<1 E.U./dL)
[2017-01-30 08:13] LABS: URINE APPEARANCE SL CLOUDY (CLEAR); URINE COLOR YELLOW (YELLOW)
[2017-01-30 08:19] LABS: INR 0.88 (0.93-1.08); PARTIAL THROMBOPLASTIN TIME 24.3 Seconds (25.1-36.5)
[2017-01-30 08:23] LABS: ALB/GLOB RATIO 1.4 (1.1-1.8); ALKALINE PHOSPHATASE 54 U/L (38-126); ALT/SGPT 53 U/L (7-56); AST/SGOT 51 U/L (14-36); BILIRUBIN,TOTAL 0.7 mg/dL (0.2-1.3); BLOOD UREA NITROGEN 19 mg/dL (7-21); CALCIUM 9.5 mg/dL (8.4-10.5); CARBON DIOXIDE 27 mmol/L (21-33); CHLORIDE 105 mmol/L (98-107); GFR AFRICAN-AMERICAN > 60; GLUCOSE,RANDOM 123 mg/dL (70-110); POTASSIUM 4.4 mmol/L (3.6-5.0); SODIUM 141 mmol/L (132-148); TOTAL PROTEIN 7.1 g/dL (5.8-8.3)
[2017-01-30 08:24] LABS: URINE BACTERIA MANY (NEG); URINE WBC 0 - 2 /hpf (0-6)
--- NOTE | 2017-01-30 17:54 | US ---
HISTORY: Leg pain and swelling. Evaluate for DVT PHYSICIAN(S): Shimon Milligan MD. TECHNIQUE: Duplex sonography and color-flow Doppler with graded compression were used to evaluate the deep venous systems of both lower extremities. FINDINGS: The visualized deep venous systems of both lower extremities are sonographically normal and compressible. Normal wave forms and augmentation are seen. There is no sonographic evidence for deep venous thrombosis in the visualized segments of both lower extremities. IMPRESSION: No sonographic evidence for deep venous thrombosis in the visualized segments of both lower extremities.
== END 2017-01-30 08:46 | disposition home or self-care (01) ==
LOC: ED 06:59
DX: M79.605 Pain in left leg (principal); F17.210 Nicotine dependence, cigarettes, uncomplicated; J44.9 Chronic obstructive pulmonary disease, unspecified
CPT/HCPCS: 80053; 81001; 84703; 85025; 85610; 85730; 93970; 96374; 99284; J1885

== ENCOUNTER 2017-07-29 15:35 | Emergency (ER) | payer MEDICARE ==
[2017-07-29 15:57] VITALS: PULSE 83; RESP 18; O2SAT 98; BMI 36.5
[2017-07-29 16:56] LABS: BASO # 0.02 K/mm3 (0.0-2.0); BASO % 0.2 % (0.0-3.0); EOS # 0.1 (0.0-0.7); EOS % 1.5 % (1.5-5.0); GRAN # 5.14 (1.4-6.5); GRAN % 57.5 % (50.0-68.0); HEMOGLOBIN 13.9 g/dL (12.0-16.0); LYMPH # 3.2 (1.2-3.4); LYMPH % 35.5 % (22.0-35.0); MEAN CELL VOLUME 88.1 fl (80.0-105.0); MEAN CORPUSCULAR HGB CONC 32.9 g/dl (31.0-37.0); MEAN PLATELET VOLUME 11.1 fl (7.0-11.0); MONO # 0.5 (0.1-0.6); MONO % 5.3 % (1.0-6.0); RBC 4.8 10^6/uL (3.5-6.1); WHITE BLOOD COUNT 8.9 10^3/ul (4.5-11.0)
[2017-07-29 17:06] LABS: ALB/GLOB RATIO 1.6 (1.1-1.8); ALBUMIN 4.3 g/dL (3.0-4.8); ALT/SGPT 32 U/L (7-56); AST/SGOT 26 U/L (14-36); BLOOD UREA NITROGEN 18 mg/dL (7-21); CALCIUM 9.9 mg/dL (8.4-10.5); GFR AFRICAN-AMERICAN > 60; GFR NON-AFRICAN AMERICAN > 60
--- NOTE | 2017-07-29 17:31 | ED PDOC ---
Arrival/HPI - General Chief Complaint: Cough, Cold, Congestion Time Seen by Provider: 07/29/17 15:53 Historian: Patient - History of Present Illness Narrative History of Present Illness (Text): 07/29/17 17:24 52yo female with PMHx of COPD who present with complaint of generalized bodyache and greenish productive cough x 2weeks. States she saw her PMD and was given Ibuprofen for the pain, without relieve. She denies fever, chills, SOB , wheezing, chest pain, diaphoresis, nausea, vomiting, any other complaint. Past Medical History - Provider Review Nursing Documentation Reviewed: Yes - Infectious Disease Hx of Infectious Diseases: None - Cardiac Hx Hypertension: Yes - Pulmonary Hx Respiratory Disorders: Yes Hx Asthma: Yes Hx Chronic Obstructive Pulmonary Disease (COPD): Yes - Neurological Hx Neurological Disorder: No - HEENT Hx HEENT Disorder: No - Renal Hx Renal Disorder: No - Endocrine/Metabolic Hx Endocrine Disorders: No - Hematological/Oncological Hx Blood Disorders: No - Integumentary Hx Dermatological Disorder: No - Musculoskeletal/Rheumatological Hx Musculoskeletal Disorders: No - Gastrointestinal Hx Gastrointestinal Disorders: No - Genitourinary/Gynecological Hx Genitourinary Disorders: No - Psychiatric Hx Psychophysiologic Disorder: No Hx Substance Use: No - Surgical History Hx Cholecystectomy: Yes - Anesthesia Hx Anesthesia: Yes Hx Anesthesia Reactions: No Hx Malignant Hyperthermia: No Family/Social History - Physician Review Nursing Documentation Reviewed: Yes Family/Social History: Unknown Family HX Smoking Status: Heavy Smoker > 10 Cigarettes Daily Hx Alcohol Use: No Hx Substance Use: No Allergies/Home Meds Allergies/Adverse Reactions: Allergies mold Allergy (Verified 01/30/17 07:15) COUGH dust mites Allergy (Uncoded 01/30/17 07:15) COUGH Home Medications: Home Meds Medication Instructions Recorded Confirmed Clonazepam 1 mg PO TID 07/18/16 07/29/17 Albuterol 0.5% [Albuterol 0.5% 1 inh INH PRN PRN 01/30/17 07/29/17 Inhal Kaya (2.5 mg/0.5 ml) UD] Fluticasone/Salmeterol 500/50 1 inh INH BID 01/30/17 07/29/17 [Advair Diskus 500/50] Albuterol Sulfate [Ventolin Hfa] 1 puff IH QID PRN 07/29/17 07/29/17 Hydrochlorothiazide [Microzide] 1 tab PO DAILY 07/29/17 07/29/17 Ibuprofen [Motrin Tab] 1 tab PO Q8H PRN 07/29/17 07/29/17 Loratadine [Claritin] 1 tab PO DAILY 07/29/17 07/29/17 Montelukast [Singulair] 1 tab PO DAILY 07/29/17 07/29/17 Review of Systems - Physician Review All systems were reviewed & negative as marked: Yes - Review of Systems Constitutional: Normal Eyes: Normal ENT: Normal Respiratory: Cough. absent: SOB, Sputum, Wheezing Cardiovascular: Normal Gastrointestinal: Normal Genitourinary Female: Normal Musculoskeletal: Myalgias Skin: Normal Neurological: Normal Endocrine: Normal Hemo/Lymphatic: Normal Psychiatric: Normal Physical Exam Vital Signs Reviewed: Yes Vital Signs Temp Pulse Resp BP Pulse Ox 07/29/17 15:44 98.5 F 83 18 141/85 98 Temperature: Afebrile Blood Pressure: Normal Pulse: Regular Respiratory Rate: Normal Appearance: Positive for: Well-Appearing, Non-Toxic, Comfortable Pain Distress: None Mental Status: Positive for: Alert and Oriented X 3 - Systems Exam Head: Present: Atraumatic, Normocephalic Pupils: Present: PERRL Extroacular Muscles: Present: EOMI Conjunctiva: Present: Normal Mouth: Present: Moist Mucous Membranes Neck: Present: Normal Range of Motion Respiratory/Chest: Present: Clear to Auscultation, Good Air Exchange. No: Respiratory Distress, Accessory Muscle Use, Wheezes, Decreased Breath Sounds, Rales, Retracting, Rhonchi, Tachypneic Cardiovascular: Present: Regular Rate and Rhythm, Normal S1, S2. No: Murmurs Abdomen: No: Tenderness, Distention, Peritoneal Signs Back: Present: Normal Inspection Upper Extremity: Present: Normal Inspection. No: Cyanosis, Edema Lower Extremity: Present: Normal Inspection. No: Edema Neurological: Present: GCS=15, CN II-XII Intact, Speech Normal Skin: Present: Warm, Dry, Normal Color. No: Rashes Psychiatric: Present: Alert, Oriented x 3, Normal Insight, Normal Concentration Medical Decision Making ED Course and Treatment: 07/29/17 19:34 PT present to ED for stated history. she was hemodynamically stable in ED . Lab was unremarkable. CXR ???LLL infiltrate Pt states she was treated with Cipro. she was given and placed on Augmentin 875mg. Tramadol given for pain. Referred to her PMD. TRT ED for any new or worsening symptoms. Pt was advised that official reading will be available tomorrow and she can pick it up from MR for more accurate and official reading of the CXR. - Lab Interpretations Lab Results: 07/29/17 16:40 07/29/17 16:40 Lab Results 07/29/17 17:18: Urine Color Straw, Urine Appearance Clear, Urine pH 6.0, Ur Specific [place] 1.010, Urine Protein Negative, Urine Glucose (UA) Negative, Urine Ketones Negative, Urine Blood Trace-intact H, Urine Nitrate Negative, Urine Bilirubin Negative, Urine Urobilinogen 0.2, Ur Leukocyte Esterase Negative , Urine RBC Negative, Urine WBC 1 - 3, Ur Epithelial Cells 6 - 8, Urine Bacteria Few 07/29/17 16:40: Sodium 142, Potassium 3.8, Chloride 102, Carbon Dioxide 29, Anion Gap 14, BUN 18, Creatinine 0.7, Est GFR ( Amer) > 60, Est GFR (Non- Af Amer) > 60, Random Glucose 113 H, Calcium 9.9, Total Bilirubin 0.3, AST 26, ALT 32, Alkaline Phosphatase 67, Total Protein 7.0, Albumin 4.3, Globulin 2.7, Albumin/Globulin Ratio 1.6 07/29/17 16:40: WBC 8.9, RBC 4.80, Hgb 13.9, Hct 42.3, MCV 88.1, MCH 29.0, MCHC 32.9, RDW 13.0, Plt Count 212, MPV 11.1 H, Gran % 57.5, Lymph % (Auto) 35.5 H, [place] % (Auto) 5.3, Eos % (Auto) 1.5, Baso % (Auto) 0.2, Gran # 5.14, Lymph # ( Auto) 3.2, [place] # (Auto) 0.5, Eos # (Auto) 0.1, Baso # (Auto) 0.02 - RAD Interpretation Radiology Orders: 07/29/17 16:15 CHEST TWO VIEWS (PA/LAT) [RAD] Stat - Medication Orders Current Medication Orders: Discontinued Medications Amoxicillin/Clavulanate Potassium (Augmentin 875 Mg-125 Mg Tab) 1 tab PO STAT STA PRN Reason: Protocol Stop: 07/29/17 18:56 Last Admin: 07/29/17 19:27 Dose: 1 tab Ketorolac Tromethamine (Toradol) 30 mg IVP STAT STA Stop: 07/29/17 17:09 Last Admin: 07/29/17 17:52 Dose: 30 mg MAR Pain Assessment Document 07/29/17 17:52 [employer] (Rec: 07/29/17 17:52 [employer] [id number]) Pain Reassessment Is this a pain reassessment? No IVP Administration Document 07/29/17 17:52 [employer] (Rec: 07/29/17 17:52 [employer] [id number]) Charges for Administration # of IVP Administrations 1 Re-Assess: MAR Pain Assessment Document 07/29/17 19:00 RG (Rec: 07/29/17 19:27 RG [id number]) Pain Reassessment Is this a pain reassessment? Yes Sleep Is patient sleeping during reassessment? No Presence of Pain Presence of Pain No Description Alleviating Factors/Management Medication Techniques Disposition/Present on Arrival - Present on Arrival Any Indicators Present on Arrival: No History of DVT/PE: No History of Uncontrolled Diabetes: No Urinary Catheter: No History of Decub. Ulcer: No History Surgical Site Infection Following: None - Disposition Have Diagnosis and Disposition been Completed?: Yes Diagnosis: Pneumonia, Myalgia Disposition: HOME/ ROUTINE Disposition Time: 19:15 Patient Plan: Discharge Patient Problems: Current Active Problems Problem Status Onset Pneumonia Acute Condition: STABLE Discharge Instructions (ExitCare): Community-Acquired Pneumonia in Adults Additional Instructions: Follow up with your doctor Take medication as directed Return to ED for any new or worsening symptoms Prescriptions: Amoxicillin/Clavulanate [Augmentin 875 MG-125 MG] 1 tab PO BID #14 tab traMADol [Ultram] 50 mg PO TID #9 tab Referrals: [facility] [place] - Follow up with primary Forms: [employer] (Lithuanian)
[2017-07-29 17:33] LABS: URINE BILIRUBIN NEGATIVE (NEGATIVE); URINE BLOOD TRACE-INTACT (NEGATIVE); URINE GLUCOSE (UA) NEGATIVE (NEGATIVE); URINE LEUKOCYTE ESTERASE NEGATIVE Leu/uL (NEGATIVE); URINE PROTEIN NEGATIVE mg/dL (<30 mg/dL); URINE UROBILINOGEN 0.2 E.U./dL (<1 E.U./dL)
[2017-07-29 17:34] LABS: URINE APPEARANCE CLEAR (CLEAR); URINE COLOR STRAW (YELLOW)
[2017-07-29 17:39] LABS: URINE BACTERIA FEW (NEG); URINE RBC NEGATIVE /hpf (0-2)
[2017-07-29] MEDS ORDERED: Amoxicillin-Clav 875-125 mg Tab PO STA (18:55)
[2017-07-29 21:02] VITALS: BP 135/70; TEMP 98.6
--- NOTE | 2017-07-30 07:56 | RAD ---
HISTORY: cough COMPARISON: No prior. TECHNIQUE: Chest PA and lateral FINDINGS: LUNGS: Mild peribronchial thickening. No evidence of pneumonia PLEURA: No significant pleural effusion identified. No pneumothorax apparent. CARDIOVASCULAR: Normal. OSSEOUS STRUCTURES: There is scoliosis of the thoracic spine VISUALIZED UPPER ABDOMEN: Normal. OTHER FINDINGS: None. IMPRESSION: Mild peribronchial thickening. No evidence of pneumonia
== END 2017-07-29 19:35 | disposition home or self-care (01) ==
LOC: ED 15:35
DX: J18.9 Pneumonia, unspecified organism (principal); M79.1 Myalgia; I10 Essential (primary) hypertension; F17.210 Nicotine dependence, cigarettes, uncomplicated
CPT/HCPCS: 71046; 80053; 81001; 85025; 87040; 96374; 99283; J1885

== ENCOUNTER 2017-10-20 11:00 | Emergency (ER) | payer MEDICARE ==
[2017-10-20 11:01] VITALS: BMI 34.9
--- NOTE | 2017-10-20 11:25 | ED PDOC ---
Arrival/HPI - General Chief Complaint: Shortness Of Breath Time Seen by Provider: 10/20/17 11:09 - History of Present Illness Narrative History of Present Illness (Text): 10/20/17 11:22 Patient is a 52 y/o F with hx of COPD, presenting with generalized fatigue, bodyache, chills, and shortness of breath x 2 days. She is also complaining of R sided upper back pain. 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 She reports that she thinks this triggered her COPD. Reports non- productive cough. Denies chest pain. Reports using her nebulizer without relief. 10/20/17 13:35 Past Medical History - Provider Review Nursing Documentation Reviewed: Yes - Infectious Disease Hx of Infectious Diseases: None - Reproductive Menopause: No - Cardiac Hx Hypertension: Yes - Pulmonary Hx Respiratory Disorders: Yes Hx Asthma: Yes Hx Chronic Obstructive Pulmonary Disease (COPD): Yes - Neurological Hx Neurological Disorder: No - HEENT Hx HEENT Disorder: No - Renal Hx Renal Disorder: No - Endocrine/Metabolic Hx Endocrine Disorders: No - Hematological/Oncological Hx Blood Disorders: No - Integumentary Hx Dermatological Disorder: No - Musculoskeletal/Rheumatological Hx Musculoskeletal Disorders: No - Gastrointestinal Hx Gastrointestinal Disorders: No - Genitourinary/Gynecological Hx Genitourinary Disorders: No - Psychiatric Hx Psychophysiologic Disorder: No Hx Substance Use: No - Surgical History Hx Cholecystectomy: Yes - Anesthesia Hx Anesthesia: Yes Hx Anesthesia Reactions: No Hx Malignant Hyperthermia: No Family/Social History Family/Social History: Unknown Family HX Smoking Status: Heavy Smoker > 10 Cigarettes Daily Hx Alcohol Use: No Hx Substance Use: No Allergies/Home Meds Allergies/Adverse Reactions: Allergies mold Allergy (Verified 10/20/17 11:17) COUGH dust mites Allergy (Uncoded 01/30/17 07:15) COUGH Home Medications: Home Meds Medication Instructions Recorded Confirmed Albuterol 0.5% [Albuterol 0.5% 1 inh INH PRN PRN 01/30/17 10/20/17 Inhal Kaya (2.5 mg/0.5 ml) UD] Fluticasone/Salmeterol 500/50 1 inh INH BID 01/30/17 10/20/17 [Advair Diskus 500/50] Albuterol Sulfate [Ventolin Hfa] 1 puff IH QID PRN 07/29/17 10/20/17 clonazePAM [clonAZEPAM] 1 mg PO BID 10/20/17 10/20/17 Review of Systems - Review of Systems Constitutional: Fatigue, Other (chills). absent: Weight Change, Fevers Eyes: absent: Vision Changes ENT: Sore Throat, Sinus Congestion. absent: Hearing Changes Respiratory: SOB, Cough, Wheezing. absent: Sputum Cardiovascular: absent: Chest Pain, Palpitations, Edema, Calf Pain, MOSS, Orthopnea, Syncope Gastrointestinal: absent: Abdominal Pain, Constipation, Diarrhea, Nausea, Vomiting Genitourinary Female: Hematuria (baseline and aware that she needs urology f/u) . absent: Dysuria Skin: absent: Rash Neurological: absent: Headache, Dizziness, Focal Weakness, Gait Changes, Speech Changes Psychiatric: absent: Anxiety, Depression Physical Exam Vital Signs Temp Pulse Resp BP Pulse Ox 10/20/17 13:45 98.4 F 87 20 126/67 96 10/20/17 11:01 98.1 F 69 18 129/75 96 Temperature: Afebrile Blood Pressure: Normal Pulse: Regular Respiratory Rate: Normal Appearance: Positive for: Well-Appearing, Non-Toxic, Comfortable Pain Distress: None Mental Status: Positive for: Alert and Oriented X 3 - Systems Exam Head: Present: Atraumatic, Normocephalic Pupils: Present: PERRL Extroacular Muscles: Present: EOMI Conjunctiva: Present: Normal Mouth: Present: Moist Mucous Membranes Pharnyx: No: ERYTHEMA, EXUDATE Neck: Present: Normal Range of Motion Respiratory/Chest: Present: Good Air Exchange, Wheezes. No: Respiratory Distress, Accessory Muscle Use Cardiovascular: Present: Regular Rate and Rhythm, Normal S1, S2. No: Murmurs Abdomen: No: Tenderness, Distention Upper Extremity: Present: Normal Inspection Lower Extremity: Present: Normal Inspection. No: Edema, CALF TENDERNESS Neurological: Present: GCS=15, CN II-XII Intact, Speech Normal Psychiatric: Present: Alert, Oriented x 3, Normal Insight, Normal Concentration Medical Decision Making ED Course and Treatment: 10/20/17 11:29 EKG shows NSR at 66bpm with LVH. Isolated inverted t wave III. Given duoneb and steroids 10/20/17 11:31 10/20/2017 13:04 Chest X-ray IMPRESSION: No active disease. Dictator: Gerardo Watters MD 10/20/17 13:46 Patient feels better. Wheezing is resolved. Normal O2 saturation and respiratory rate. Cxray negative for pneumonia. - Lab Interpretations Lab Results: 10/20/17 11:25 10/20/17 11:25 Lab Results 10/20/17 11:25: Sodium 142, Potassium 4.0, Chloride 108 H, Carbon Dioxide 22, Anion Gap 16, BUN 13, Creatinine 0.7, Est GFR ( Amer) > 60, Est GFR (Non- Af Amer) > 60, Random Glucose 104, Calcium 9.3, Total Bilirubin 0.3, AST 19, ALT 24, Alkaline Phosphatase 84, Total Protein 6.5, Albumin 3.9, Globulin 2.6, Albumin/Globulin Ratio 1.5 10/20/17 11:25: WBC 7.2, RBC 4.54, Hgb 12.7, Hct 38.0, MCV 83.7 D, MCH 28.0, MCHC 33.4, RDW 14.7 H, Plt Count 200, MPV 10.2, Gran % 51.0, Lymph % (Auto) 39.4 H, [place] % (Auto) 7.1 H, Eos % (Auto) 1.9, Baso % (Auto) 0.6, Gran # 3.68, Lymph # (Auto) 2.8, [place] # (Auto) 0.5, Eos # (Auto) 0.1, Baso # (Auto) 0.04 - RAD Interpretation Radiology Orders: 10/20/17 11:16 CHEST TWO VIEWS (PA/LAT) [RAD] Stat - Medication Orders Current Medication Orders: Discontinued Medications Albuterol/Ipratropium (Duoneb 3 Mg/0.5 Mg (3 Ml) Ud) 3 ml IH Q15M CARLOS ALBERTO Stop: 10/20/17 12:01 Last Admin: 10/20/17 12:01 Dose: 3 ml Albuterol/Ipratropium (Duoneb 3 Mg/0.5 Mg (3 Ml) Ud) 3 ml IH STAT STA Stop: 10/20/17 13:20 Last Admin: 10/20/17 13:24 Dose: 3 ml Ketorolac Tromethamine (Toradol) 30 mg IVP STAT STA Stop: 10/20/17 13:34 Last Admin: 10/20/17 13:43 Dose: 30 mg MAR Pain Assessment Document 10/20/17 13:43 SRE (Rec: 10/20/17 13:44 SRE [id number]) Pain Reassessment Is this a pain reassessment? Yes Sleep Is patient sleeping during reassessment? No Presence of Pain Presence of Pain Yes Pain Scale Used Pain Scale Used Numeric Location Left, Right or Bilateral Right Pain Location Body Site Back Description Description Intermittent IVP Administration Document 10/20/17 13:43 SRE (Rec: 10/20/17 13:44 SRE [id number]) Charges for Administration # of IVP Administrations 1 Methylprednisolone (Solu-Medrol) 125 mg IVP STAT STA Stop: 10/20/17 11:17 Last Admin: 10/20/17 11:35 Dose: 125 mg IVP Administration Document 10/20/17 11:35 SRE (Rec: 10/20/17 11:35 SRE [id number]) Charges for Administration # of IVP Administrations 1 Disposition/Present on Arrival - Present on Arrival Any Indicators Present on Arrival: No History of DVT/PE: No History of Uncontrolled Diabetes: No Urinary Catheter: No History of Decub. Ulcer: No History Surgical Site Infection Following: None - Disposition Have Diagnosis and Disposition been Completed?: Yes Diagnosis: COPD exacerbation Disposition: HOME/ ROUTINE Disposition Time: 13:47 Patient Plan: Discharge Condition: GOOD Discharge Instructions (ExitCare): Exacerbation of COPD, Inhalers Additional Instructions: Follow-up with PMD within 2 days. Return to ED if condition worsens. Take full course of steroids and azithromycin. Use nebulizer. Prescriptions: Albuterol HFA [Ventolin HFA 90 mcg/actuation (8 g)] 2 puff IH [id number] #1 puff Azithromycin 250 mg PO DAILY #6 tablet predniSONE [predniSONE Tab] 60 mg PO DAILY #9 tab Referrals: Melisa Aranda MD [Primary Care Provider] - Follow up with primary Forms: [employer] ([place])
[2017-10-20 11:28] VITALS: O2SAT 96
[2017-10-20 11:30] LABS: BASO # 0.04 K/mm3 (0.0-2.0); BASO % 0.6 % (0.0-3.0); EOS # 0.1 (0.0-0.7); EOS % 1.9 % (1.5-5.0); GRAN # 3.68 (1.4-6.5); HEMOGLOBIN 12.7 g/dL (12.0-16.0); LYMPH # 2.8 (1.2-3.4); LYMPH % 39.4 % (22.0-35.0); MEAN CELL VOLUME 83.7 fl (80.0-105.0); MEAN CORPUSCULAR HGB CONC 33.4 g/dl (31.0-37.0); MEAN PLATELET VOLUME 10.2 fl (7.0-11.0); MONO # 0.5 (0.1-0.6); MONO % 7.1 % (1.0-6.0); RBC 4.54 10^6/uL (3.5-6.1); RED CELL DISTRIBUTION WIDTH 14.7 % (11.5-14.5); WHITE BLOOD COUNT 7.2 10^3/ul (4.5-11.0)
[2017-10-20] MEDS: Albuterol-Ipratrop 3 mg / 0.5 (3 ml) UD IH SCH ×3 (11:35→12:01)
[2017-10-20 11:47] LABS: ALB/GLOB RATIO 1.5 (1.1-1.8); ALBUMIN 3.9 g/dL (3.0-4.8); ALT/SGPT 24 U/L (7-56); AST/SGOT 19 U/L (14-36); BLOOD UREA NITROGEN 13 mg/dL (7-21); CALCIUM 9.3 mg/dL (8.4-10.5); GFR AFRICAN-AMERICAN > 60; GFR NON-AFRICAN AMERICAN > 60
--- NOTE | 2017-10-20 13:05 | RAD ---
Date of service: 10/20/2017 HISTORY: cough, wheezing' COMPARISON: No prior. TECHNIQUE: Chest PA and lateral FINDINGS: LUNGS: No active pulmonary disease. PLEURA: No significant pleural effusion identified. No pneumothorax apparent. CARDIOVASCULAR: Normal. OSSEOUS STRUCTURES: Scoliosis convex to right VISUALIZED UPPER ABDOMEN: Normal. OTHER FINDINGS: None. IMPRESSION: No active disease.
[2017-10-20] MEDS ORDERED: Albuterol-Ipratrop 3 mg / 0.5 (3 ml) UD IH STA (13:19)
[2017-10-20] MEDS ORDERED: Albuterol-Ipratrop 3 mg / 0.5 (3 ml) UD ONE (13:22)
[2017-10-20 13:45] VITALS: BP 126/67; PULSE 87; RESP 20; TEMP 98.4
--- NOTE | 2017-10-21 12:47 | CARD ---
APPROVED REPORT Date of service: 10/20/2017 EKG Measurement Heart [id number] <Conclusion> Normal sinus rhythm
== END 2017-10-20 13:58 | disposition home or self-care (01) ==
LOC: ED 11:00
DX: J44.1 Chronic obstructive pulmonary disease with (acute) exacerbation (principal); I10 Essential (primary) hypertension; F17.210 Nicotine dependence, cigarettes, uncomplicated
CPT/HCPCS: 71046; 80053; 85025; 93005; 96374; 96375; 99284; J1885; J2930